=== PATIENT | male | born 1955 | race Caucasian/White ===

== ENCOUNTER 2024-02-28 05:53 | Day surgery (SDC) | payer OTHER ==
[2024-02-27 11:08] VITALS: BMI 30.7
[2024-02-28] MEDS ORDERED: Iopamidol 30 ML ONE (06:59)
[2024-02-28] MEDS ORDERED: Lidocaine 2% PF 5 ML VIAL ONE (08:18)
[2024-02-28] MEDS ORDERED: PROPOFOL 20 ML ONE ×2 (08:18→08:50)
[2024-02-28] MEDS ORDERED: fentaNYL PF 100 MCG/2 ML SYRINGE ONE ×4 (08:18→12:05)
[2024-02-28] MEDS ORDERED: CEFAZOLIN 2 GM VIAL ONE (08:34)
[2024-02-28] MEDS ORDERED: Ondansetron PF 4 MG/2 ML Vial ONE ×2 (08:53→11:34)
[2024-02-28] MEDS ORDERED: Dexamethasone 4 mg/ml Vial ONE (08:53)
[2024-02-28] MEDS ORDERED: Ketorolac Tromethamine 30 MG (1 mL) VIAL ONE (08:53)
[2024-02-28] MEDS ORDERED: PHENYLEPHRINE-NS 100 MCG/ML 10 ML SYRINGE ONE (09:48)
[2024-02-28] MEDS ORDERED: HYDROmorphone 0.5 MG/0.5 ML SYRINGE ONE ×2 (11:11→12:06)
[2024-02-28] MEDS ORDERED: Promethazine HCl 25 MG/ML VIAL ONE (12:02)
[2024-02-28] MEDS ORDERED: Labetalol HCl 100 MG/20 ML VIAL ONE (13:44)
== END 2024-02-28 16:30 | disposition home or self-care (01) ==
LOC: SDC 05:53
PROVIDERS: ATTEND Urology
PROC: 0TC18ZZ Extirpation of Matter from Left Kidney, Via Natural or Artificial Opening Endoscopic (ICD-10-PCS; principal; 2024-02-28)
PROC: 0T778DZ Dilation of Left Ureter with Intraluminal Device, Via Natural or Artificial Opening Endoscopic (ICD-10-PCS; 2024-02-28)
DX: N20.2 Calculus of kidney with calculus of ureter (principal); I10 Essential (primary) hypertension; E11.9 Type 2 diabetes mellitus without complications; E78.00 Pure hypercholesterolemia, unspecified; G47.33 Obstructive sleep apnea (adult) (pediatric); M10.9 Gout, unspecified; Z79.899 Other long term (current) drug therapy
CPT/HCPCS: 52356; 74420; 82365; J1100; J1885; J2405; J2550; J2704; Q9967; 88300; 93005; 93010; C1747; C1769; C2617